=== PATIENT | female | born 1965 | race Caucasian/White ===

== ENCOUNTER → 2017-11-14 | Outpatient (CLI) | payer BC ==
[~2017-11-14] MED LIST: AMLO5TAB2 PO; CYCL-36 PO; DICL-86 PO; HYDR25TA5 PO; LORT7.5T3 PO; Z.0.NO CURRENT MEDS
--- NOTE | 2017-11-14 20:45 | EKG ---
Date Performed: 11/14/2017 Time Performed: 13:22:49 PTAGE: 52 years EKG: Sinus rhythm NONSPECIFIC T-WAVE ABNORMALITY BORDERLINE ECG NO PREVIOUS TRACING DOCTOR: Tad Everett Interpretating Date/Time 11/14/2017 20:44:10
== END ==
LOC: CPRE 13:08
PROVIDERS: ATTEND Obstetrics & Gynecology
DX: Z01.810 Encounter for preprocedural cardiovascular examination (principal); N81.10 Cystocele, unspecified; N81.6 Rectocele; R94.31 Abnormal electrocardiogram [ECG] [EKG]
CPT/HCPCS: 93005

== ENCOUNTER 2017-11-16 12:14 | Observation (INO) | payer BC ==
--- NOTE | 2017-11-15 12:58 | MH ---
cc: Antony Clemente MD DATE OF ADMISSION: 11/16/2017 ADMITTING DIAGNOSIS: Cystocele, rectocele. HISTORY OF PRESENT ILLNESS: The patient is a 52-year-old white female, para 3-0-0-3 who returned for a yearly visit on 10/06/2017 with complaints of tissue protrusion of vagina and hot flashes and night sweats. Her FSH level was elevated and she has done well on EstroGel, but because of persistent prolapse, is now admitted for surgical repair. PAST MEDICAL HISTORY: Previous surgery: Abdominoplasty 2002, breast implants 2002, a LASH procedure 2007. MEDICATIONS: Vitamins. ALLERGIES: NONE. TRANSFUSIONS: None. OBSTETRIC HISTORY: Three vaginal deliveries. 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 Alcohol, tobacco and drugs are none. FAMILY HISTORY: Noncontributory. REVIEW OF SYSTEMS: Negative. PHYSICAL EXAMINATION: This is a well-nourished, well-developed white female. VITAL SIGNS: Stable. HEENT: Normal. CHEST: Clear. HEART: Regular rate. BREASTS: Symmetrical with implants. ABDOMEN: Benign. PELVIC: The vagina shows a third-degree cystocele, second to third degree rectocele with good cervical support. Uterus is absent. Bimanual, no mass or pain. ASSESSMENT: As above. PLAN: She is now admitted for a vaginal AP repair. While in the office, I explained the procedure, the risks, benefits and complications including infection, injury, bleeding, and recurrent prolapse were explained. Discussed the need for post-procedure limitations to avoid recurrent prolapse. Antony Clemente MD JAW/DL , 12:43 PM , 12:56 PM
[~2017-11-16] VITALS: Ht 162.6 cm; Wt 80.1 kg
[~2017-11-16 12:14] MED LIST changes: -AMLO5TAB2 PO; -CYCL-36 PO; +DEXAMETHASONE SOD PHOS 4 MG/ML VIAL IV ONE; -DICL-86 PO; +GLYCOPYRROLATE 1 MG/5 ML SYRINGE IV PUSH ONE; +KETOROLAC TROMETHAMINE 30 MG/ML (IVP) VIAL IV PUSH ONE; +LIDOCAINE HCL 1% PF 5 ML SYRINGE OTHER ONE; -LORT7.5T3 PO; +NEOSTIGMINE 5 MG/5 ML SYRINGE IV PUSH ONE; +ONDANSETRON HCL 4 MG/2 ML VIAL IV ONE; +PROPOFOL 200 MG/20 ML AMP IV ONE; +ROCURONIUM INJ 50 MG/5 ML SYRINGE IV PUSH ONE; -Z.0.NO CURRENT MEDS; +ePHEDrine/NS 25 MG/5 ML SYRINGE IV ONE
[2017-11-16] MEDS ORDERED: METOPROLOL TARTRATE 25 MG TAB PO PRN (12:45)
[2017-11-16] MEDS ORDERED: POVIDONE IODINE 5% (ANTISEPSIS KIT) 4 APPLICATIONS EACH NARE PRN (12:45)
[2017-11-16] MEDS ORDERED: LACTATED RINGER'S 1000 ML IV PRN (12:45)
[2017-11-16] MEDS ORDERED: SODIUM CHLORID 0.9% 500 ML IV PRN (12:45)
[2017-11-16] MEDS ORDERED: ceFAZolin 1,000 MG/NS 100 ML IV SCH ×2 (12:45)
[2017-11-16] MEDS ORDERED: ACETAMINOPHEN 1000 MG/100 ML 100 ML IV SCH (12:45)
[2017-11-16] MEDS ORDERED: CHLORHEXIDINE GLUCONATE 2 % 1 PACK (2 CLOTHS) TOPICAL PRN (12:45)
[2017-11-16] MEDS ORDERED: AMLO5TAB2 PO (12:46)
[2017-11-16] MEDS ORDERED: ESTROGENS CONJUGATED VAG CREA 15 APPL/30 GM TUBE ONE (14:29)
[2017-11-16] MEDS ORDERED: diphenhydrAMINE HCL 25 MG CAP PO PRN (16:45)
[2017-11-16] MEDS ORDERED: ONDANSETRON HCL 4 MG/2 ML VIAL IV PUSH PRN (16:45)
[2017-11-16] MEDS ORDERED: PROMETHAZINE INJ 25 MG/ML VIAL IM PRN (16:45)
[2017-11-16] MEDS ORDERED: HYDROmorphone HCL PF 1 MG/ML VIAL IV PUSH PRN (16:45)
[2017-11-16] MEDS ORDERED: DO NOT ADM ANY ANTICOAGULANT DRUGS PRN (16:53)
--- NOTE | 2017-11-16 16:57 | MP ---
cc: Antony Clemente MD, John A MD DATE OF OPERATION: 11/16/2017 PREOPERATIVE DIAGNOSES: Cystocele, rectocele. POSTOPERATIVE DIAGNOSES: Cystocele, rectocele. PROCEDURE PERFORMED: Anterior and posterior repair. ANESTHESIA: General ET. SURGEON: Antony Clemente MD MARKER MACHINE ATTENDANT: Inocencia Elder. ESTIMATED BLOOD LOSS: 100 mL FLUIDS: 1400 mL crystalloid. OBJECTIVE FINDINGS: Following induction of adequate general endotracheal anesthesia, the patient was prepped and draped supine on the operating table in dorsal lithotomy position usual sterile fashion with bladder being drained by Mcdonald catheterization. The anterior repair was performed by placing a heavy weighted speculum in posterior fornix of vagina. The vagina was opened in the midline beneath the bladder and urethra with a knife and then Metzenbaum scissors were used to undermine the mucosa to the cervix and back towards the urethra. With Allis clamps for traction, the vaginal mucosa was from underlying perivesical and periurethral fascia. When well mobilized, the UV junction was plicated with a 2-0 stitch of Vicryl in Norma fashion. Additional sutures were placed to elevate the cystocele and the urethrocele and a second layer at the UV junction. Excess anterior vaginal mucosa was trimmed and the anterior vaginal wall closed with interrupted sutures of 2-0 Vicryl in [id number] fashion. The posterior repair was now performed by excising a nai shaped wedge of scar tissue from the perineum and the vaginal introitus with a knife. Then, the vaginal cuff undermined over the rectocele. The perirectal fascia was from the vaginal mucosa and the rectocele defect was repaired with a running stitch of 2-0 Vicryl from the apex to the introitus and tied to reinforce the perirectal fascia. Excess posterior vaginal mucosa was trimmed. The posterior vaginal wall closed with a running locking stitch of 2-0 Vicryl. The perineum was now reinforced with interrupted sutures of 2-0 Vicryl and the subcutaneous and subcuticular stitches placed with running 2-0 Vicryl. Inspection revealed good support and no bleeding. The vagina was packed with 2 inch gauze moistened with Premarin cream. Rectal exam was normal. All counts were correct and the patient was awake and taken to the recovery room in good condition. MD SALAS Sam/ , 04:43 PM , 04:55 PM [email or web address]
[2017-11-16] MEDS ORDERED: MIDAZOLAM HCL 2 MG/2 ML VIAL ONE (16:59)
[2017-11-16] MEDS ORDERED: *morphine SULFATE 8 MG/ML PERIprocedure ONLY ONE (17:00)
[2017-11-16] MEDS ORDERED: HYDROmorphone HCL PF 2 MG/ML VIAL ONE (17:18)
[2017-11-16] MEDS ORDERED: *RESP: ALBUTEROL 2.5 MG/3 ML NEB (PRN) PERIprocedural Use ONLY NEB ONE (17:38)
[2017-11-16] MEDS: D5-1/2 NS + KCL 20 MEQ INJ 1,000 ML IV SCH (17:45)
[2017-11-16 18:00] VITALS: BP 127/65; PULSE 90; RESP 20; TEMP 97.7; O2SAT 97
[2017-11-16] MEDS: KETOROLAC TROMETHAMINE 30 MG/ML (IVP) VIAL IVP SCH ×2 (18:00→23:41)
[2017-11-16 20:00] VITALS: O2SAT 96
[2017-11-16 20:11] VITALS: BP 96/59; PULSE 80; RESP 18; TEMP 98; O2SAT 95
[2017-11-16] MEDS ORDERED: ZOLPIDEM TARTRATE 5 MG TAB PO PRN (21:00)
[2017-11-16] MEDS ORDERED: DOCUSATE SODIUM 100 MG CAP PO SCH (21:00)
[2017-11-16] MEDS: ACETAMINOPHEN 1000 MG/100 ML VIAL IV SCH (23:41)
[2017-11-17 00:16] VITALS: BP 108/65; PULSE 101; RESP 18; TEMP 98; O2SAT 95
[2017-11-17] MEDS: D5-1/2 NS + KCL 20 MEQ INJ 1,000 ML IV SCH (01:00)
[2017-11-17 04:32] VITALS: BP 115/58; PULSE 84; RESP 18; TEMP 98; O2SAT 95
[2017-11-17] MEDS: KETOROLAC TROMETHAMINE 30 MG/ML (IVP) VIAL IVP SCH (05:41)
[2017-11-17 06:05] LABS: AUTOMATED NEUTROPHIL # 5.7 TH/MM3 (1.8-7.7); BASOPHIL % 0.2 % (0.0-2.0); HEMATOCRIT 36.9 % (35.0-46.0); LYMPH % 15.4 % (9.0-44.0); LYMPHOCYTE # 1.1 TH/MM3 (1.0-4.8); MEAN CELL VOLUME 85.7 FL (80.0-100.0); MEAN CORPUSCULAR HEMOGLOBIN 30.2 PG (27.0-34.0); MEAN CORPUSCULAR HGB CONC 35.2 % (32.0-36.0); MEAN PLATELET VOLUME 6.8 FL (7.0-11.0); MONO % 7.6 % (0.0-8.0); MONOCYTE # 0.6 TH/MM3 (0-0.9); NEUT % 76.8 % (16.0-70.0); PLATELET COUNT 236 TH/MM3 (150-450); RED BLOOD COUNT 4.31 MIL/MM3 (4.00-5.30); RED CELL DISTRIBUTION WIDTH 13.5 % (11.6-17.2); WHITE BLOOD COUNT 7.4 TH/MM3 (4.0-11.0)
[2017-11-17 06:28] LABS: BICARBONATE 27.6 MEQ/L (21.0-32.0); CALCIUM 9.2 MG/DL (8.5-10.1); CREATININE 0.69 MG/DL (0.50-1.00)
[2017-11-17] MEDS: ACETAMINOPHEN 1000 MG/100 ML VIAL IV SCH (07:21)
[2017-11-17 08:00] VITALS: BP 135/73; PULSE 85; RESP 20; TEMP 98.2; O2SAT 97
--- NOTE | 2017-11-17 08:17 | HHI.DCPOC ---
Discharge Care Plan Report Symptoms to Your Doctor -Temperature above 100.5 degrees -Redness, of incision or excessive or foul smelling drainage -Unusual pain or calf pain -Increased vaginal bleeding -Painful or difficulty urinating -Feelings of extreme sadness or anxiety after 2 weeks Goals to Promote Your Health * To prevent worsening of your condition and complications * To maintain your health at the optimal level Directions to Meet Your Goals Take your medications as prescribed Follow your dietary instruction Follow activity as directed Ensure plenty of rest for recovery Drink fluids for hydration Keep your appointments as scheduled Take your immunizations and boosters as scheduled If your symptoms worsen call your PCP, if no PCP go to Urgent Care Center or Emergency Room Smoking is Dangerous to Your Health. Avoid second hand smoke Call the 24-hour crisis hotline for domestic abuse at Antony Clemente MD Nov 17, 2017 08:17
[2017-11-17] MEDS ORDERED: amLODIPine BESYLATE 5 MG TAB PO SCH (09:00)
[2017-11-17] MEDS ORDERED: HYDROCHLOROTHIAZIDE 25 MG TAB PO SCH (09:00)
== END 2017-11-17 10:03 | disposition home or self-care (01) ==
LOC: HSDC 12:14 → HSDI 16:39 → H1EA 18:01
PROVIDERS: ADMIT Obstetrics & Gynecology; ATTEND Obstetrics & Gynecology
DX: N81.10 Cystocele, unspecified (principal); N81.6 Rectocele; I10 Essential (primary) hypertension; N95.1 Menopausal and female climacteric states; Z98.82 Breast implant status
CPT/HCPCS: 00942; 57260; 80048; 85025; 88302; 94150; 96374; 96375; 96376; G0378; J0131; J0690; J1100; J1170; J1885; J2250; J2270; J2405; J2710; J3010; J3480; J7120; J7613; 88305; 94664